=== PATIENT | female | born 1985 | race Caucasian/White ===

== ENCOUNTER 2017-10-09 17:54 | Inpatient (IN) | payer MEDICAID ==
[~2017-10-09] VITALS: Ht 157.5 cm; Wt 75.4 kg
[2017-10-09] MEDS ORDERED: PREN-93 PO (18:07)
[2017-10-09 18:08] VITALS: Ht 157.5 cm; Wt 75.4 kg
[2017-10-09 18:09] VITALS: BP 105/66; PULSE 81; RESP 18
--- NOTE | 2017-10-09 18:22 | TRIAGE ---
OB Triage Datetime Report Generated by CPN: 10/09/2017 18:21 Datetime: 10/09/2017 18:11 Vaginal Exam Dilatation (cms): 9.0 Effacement (%): 100 Station: -1 [facility] Vaginal Bleeding: Normal Show Cervix, Consistency: Soft Cervix, Position: Midposition Presentation 'A': Cephalic Datetime: 10/09/2017 18:04 Assessment Type: Triage Maternal Assessment Level of Consciousness: Fully Conscious DTR's/Clonus: DTRs 2+; No Clonus Headache: Denies Blurred Vision: No Respiratory Effort: Unlabored; Regular Rhythm; Equal Expansion Breath Sounds, Left: Clear and Equal Breath Sounds, Right: Clear and Equal Nausea/Vomiting: Denies RUQ Epigastric Pain: Denies Lower Extremities Edema: None Degree: None Upper Extremities Edema: None Degree: None Facial Edema: None Fall Risk Assessment History of Falling: (0) No Secondary Diagnosis: (0) No Ambulatory Aid: (0) Bedrest/Nurse Assist IV Therapy: (0) No Gait: (0) Normal/Bedrest/Immobile Mental Status: (0) Oriented to Own Ability Fall Score: 0 Fall Risk Score Definition: No Risk: No action required Datetime: 10/09/2017 18:02 Arrived By: Ambulatory Arrived From: Home Chief Complaint: PT HERE C/O UC'S AND SROM Movement: Present Contractions: Denies/Absent Rupture of Membranes: Ruptured Vaginal Bleeding: None Vaginal Discharge: Denies Recent Sexual Intercouse: Denies Abdominal Trauma: Not Applicable Patient Complaints: Contractions; Cramping; Back Pain Time Provider Notified: 10/09/2017 18:10 Provider Notified: LITTLE Initial Plan: EFM/SVE Datetime: 10/09/2017 18:01 Labor Evaluation Monitor Mode: External Heart Rate Monitor Mode: External US
[2017-10-09] MEDS ORDERED: AMPICILLIN 2 GM/NS (PMX) 100 ML ONE (18:25)
[2017-10-09] MEDS ORDERED: AMPICILLIN 2 GM/NS (PMX) 100 ML IV ONE (18:30)
[2017-10-09] MEDS ORDERED: LIDOCAINE 1% (MPF) 30 ML INJ INJ PRN (18:30)
[2017-10-09] MEDS ORDERED: LIDOCAINE 1% (MPF) 30 ML INJ ONE (18:30)
[2017-10-09] MEDS ORDERED: OXYTOCIN 30 UNITS/LR 500 ML IV PRN (18:30)
[2017-10-09] MEDS ORDERED: MISOPROSTOL 200 MCG TAB PR PRN (18:30)
[2017-10-09] MEDS ORDERED: METHYLERGONOVINE 0.2 MG INJ IM PRN (18:30)
[2017-10-09] MEDS ORDERED: LACTATED RINGER'S 1,000 ML IV PRN (18:30)
[2017-10-09] MEDS ORDERED: OXYTOCIN 30 UNITS/LR 500 ML IV SCH ×2 (18:30)
[2017-10-09] MEDS ORDERED: OXYTOCIN 30 UNITS/LR 500 ML IV ONE (18:30)
[2017-10-09] MEDS ORDERED: IBUPROFEN 600 MG TAB PO PRN (18:30)
[2017-10-09] MEDS ORDERED: CARBOPROST 250 MCG INJ IM PRN (18:30)
[2017-10-09] MEDS ORDERED: BUTORPHANOL 2 MG INJ IV PRN (18:30)
[2017-10-09 18:49] LABS: BASOPHILS % 0.3 % (0.0-2.0); EOSINOPHILS # 0.2 10^3/ul (0.0-0.5); EOSINOPHILS % 1.4 % (0.0-7.0); HEMATOCRIT 40.1 % (37.0-47.0); HEMOGLOBIN 13.5 g/dl (12.0-16.0); LYMPHOCYTES # 1.6 10^3/ul (0.8-2.9); LYMPHOCYTES % 11.4 % (15.0-51.0); MEAN CORPUSCULAR HEMOGLOBIN 31.8 pg (29.0-33.0); MEAN CORPUSCULAR HGB CONC 33.7 g/dl (32.0-37.0); MEAN CORPUSCULAR VOLUME 94.6 fl (82.0-101.0); MEAN PLATELET VOLUME 9.6 fl (7.4-10.4); MONOCYTE # 0.8 10^3/ul (0.3-0.9); MONOCYTES % 5.4 % (0.0-11.0); NEUTROPHIL # 11.2 10^3/ul (1.6-7.5); NEUTROPHILS % 80.6 % (39.0-77.0); PLATELET COUNT 273 10^3/UL (140-415); RED BLOOD COUNT 4.24 10^6/ul (4.20-5.40); RED CELL DISTRIBUTION WIDTH 13.2 % (11.5-14.5); WHITE BLOOD COUNT 13.9 10^3/ul (4.8-10.8)
[2017-10-09] MEDS: LACTATED RINGER'S 1,000 ML IV SCH ×2 (18:51→19:08)
[2017-10-09 19:10] LABS: INR 0.95; PROTIME 12.7 Sec (12.2-14.2)
[2017-10-09 19:11] LABS: PARTIAL THROMBOPLASTIN TIME 27.4 Sec (25.0-35.0)
--- NOTE | 2017-10-09 21:01 | HP ---
Date/Time of Note Date/Time of Note DATE: 10/09/17 TIME: 20:59 OB - History Hx of Present Chief Complaint: contractions Estimated Due Date: Oct 18, 2017 : 2 Para: 1 Spontaneous : 0 Therapeutic : 0 Care: Good Care Ultrasounds: Other (reports notavailable) Obstetrical Complications: None Medical Complications: None Past Family/Social History * Past Medical, Surgical, Family and Obstetric Histories reviewed from chart. GBS Status: Negative OB Admission Exam Vital Signs Vital Signs Vital Signs Date Time Temp Pulse Resp B/P Pulse Ox O2 Delivery O2 Flow Rate FiO2 10/09/17 18:09 99.4 81 18 105/66 96 Room Air Physical Exam HEENT: WNL Heart: Rhythm Normal Lungs: Clear, Equal Abdomen: WNL Extremities: Normal Reflexes: Normal Cervical Dilatation: 8cm Effacement: 100% Station: -1 Membranes: Ruptured Amniotic Fluid: Clear Heart Rate: 120's Accelerations: Accelerations Present Decelerations: Early Decelerations Varibility: Moderate Last 72 hours Lab Results CBC & BMP 10/09/17 18:20 OB Assessment/Plan Reason for admission: active labor Plan: Expectant Management KIMBERLY BELLAMY MD Oct 09, 2017 21:01
--- NOTE | 2017-10-09 21:53 | LDN ---
Date/Time of Note Date/Time of Note DATE: 10/09/17 TIME: 21:50 Delivery Summary Weeks of Gestation 38 weeks Placenta Delivered: Spontaneously Meconium: none Episiotomy: No Perineal laceration: 1 Laceration repair: Second degree laceration repaired with 3-0 chromic. Anesthesia type: Local Estimated blood loss: 200 Sponge & Needle done & correct: Yes All needle counts correct: Yes Any foreign bodies felt in the: No Problems: Infant Delivery Information Sex Sex: male Apgars 1 Minute: 9 5 Minute: 9 Suctioning Nose & mouth suctioned at freddie: Yes Delee suction performed: No Umbilical Cord Umbilical cord with: 3 Vessels Cord presentations: no nuchal cord Cord Blood was obtained: Yes Mother & Baby Disposition Disposition Mom & Baby to Maternity; Good: Yes KIMBERLY BELLAMY MD Oct 09, 2017 21:53
[2017-10-09] MEDS ORDERED: AMPICILLIN 1 GM/NS (PMX) 50 ML IV SCH (22:30)
[2017-10-10] VITALS: BP 112/58; PULSE 69; RESP 18
[2017-10-10] MEDS ORDERED: DIBUCAINE 1% 30 GM OINT PR PRN (00:30)
[2017-10-10] MEDS ORDERED: LANOLIN 7 GM TUBE TOP PRN (00:30)
[2017-10-10] MEDS ORDERED: CARBOPROST 250 MCG INJ IM PRN (00:30)
[2017-10-10] MEDS ORDERED: METHYLERGONOVINE 0.2 MG INJ IM PRN (00:30)
[2017-10-10] MEDS ORDERED: HYDROCODONE/APAP (5/325) TAB PO PRN (00:30)
[2017-10-10] MEDS ORDERED: WITCH HAZEL/GLYCERIN PAD PR PRN (00:30)
[2017-10-10] MEDS ORDERED: ACETAMINOPHEN 325 MG TAB PO PRN (00:30)
[2017-10-10] MEDS ORDERED: BENZOCAINE 20% 56 ML SPRAY TOP PRN (00:30)
[2017-10-10] MEDS ORDERED: MISOPROSTOL 200 MCG TAB PR PRN (00:30)
[2017-10-10] MEDS ORDERED: OXYTOCIN 30 UNITS/LR 500 ML IV PRN (00:30)
[2017-10-10] MEDS: IBUPROFEN 600 MG TAB PO SCH ×4 (00:48→17:55)
[2017-10-10] MEDS: LACTATED RINGER'S 1,000 ML IV* SCH ×3 (02:30→16:21)
[2017-10-10 04:00] VITALS: BP 95/51; PULSE 81; RESP 18
--- NOTE | 2017-10-10 09:36 | QN ---
Documentation Comment Post normal vaginal delivery day 1 Afebrile Vital signs are stable Abdomen soft uterus firm lochia normal extremity normal ambulation encouraged ELPIDIO FITCH MD Oct 10, 2017 09:36
[2017-10-10 09:40] LABS: BASOPHIL # 0.1 10^3/ul (0.0-0.1); BASOPHILS % 0.3 % (0.0-2.0); EOSINOPHILS # 0.2 10^3/ul (0.0-0.5); HEMOGLOBIN 11.4 g/dl (12.0-16.0); LYMPHOCYTES % 17.7 % (15.0-51.0); MEAN CORPUSCULAR HEMOGLOBIN 32.1 pg (29.0-33.0); MEAN CORPUSCULAR HGB CONC 33.5 g/dl (32.0-37.0); MEAN CORPUSCULAR VOLUME 95.8 fl (82.0-101.0); NEUTROPHIL # 12.6 10^3/ul (1.6-7.5); NEUTROPHILS % 74.2 % (39.0-77.0); PLATELET COUNT 260 10^3/UL (140-415); RED BLOOD COUNT 3.55 10^6/ul (4.20-5.40); RED CELL DISTRIBUTION WIDTH 13.6 % (11.5-14.5)
[2017-10-10] MEDS: SENNA/DOCUSATE NA (8.6MG/50MG) TAB PO SCH ×2 (09:41→22:51)
[2017-10-10 09:42] VITALS: BP 99/54; PULSE 84; RESP 18
[2017-10-10 11:44] VITALS: BP 100/53; PULSE 65; RESP 18
[2017-10-10 16:15] VITALS: BP 101/56; PULSE 70; RESP 18
[2017-10-10 20:00] VITALS: BP 114/58; PULSE 71; RESP 18
[2017-10-11] MEDS: IBUPROFEN 600 MG TAB PO SCH ×3 (00:18→13:08)
[2017-10-11 04:55] VITALS: BP 103/59; PULSE 64; RESP 18
[2017-10-11 08:00] VITALS: BP 108/65; PULSE 76; RESP 20
[2017-10-11] MEDS ORDERED: DIPHTH/TET/ACEL PERTUSS (ADULT) 0.5 ML VIAL IM* ONE (09:00)
[2017-10-11] MEDS: SENNA/DOCUSATE NA (8.6MG/50MG) TAB PO SCH (09:34)
[2017-10-11 09:42] LABS: BASOPHIL # 0.1 10^3/ul (0.0-0.1); BASOPHILS % 0.5 % (0.0-2.0); EOSINOPHILS # 0.9 10^3/ul (0.0-0.5); EOSINOPHILS % 6.9 % (0.0-7.0); HEMATOCRIT 33.2 % (37.0-47.0); HEMOGLOBIN 11.1 g/dl (12.0-16.0); LYMPHOCYTES # 2.7 10^3/ul (0.8-2.9); LYMPHOCYTES % 20.4 % (15.0-51.0); MEAN CORPUSCULAR HEMOGLOBIN 32.4 pg (29.0-33.0); MEAN CORPUSCULAR HGB CONC 33.4 g/dl (32.0-37.0); MEAN CORPUSCULAR VOLUME 96.8 fl (82.0-101.0); MEAN PLATELET VOLUME 9.8 fl (7.4-10.4); MONOCYTE # 0.6 10^3/ul (0.3-0.9); MONOCYTES % 4.7 % (0.0-11.0); NEUTROPHIL # 8.7 10^3/ul (1.6-7.5); NEUTROPHILS % 66.8 % (39.0-77.0); PLATELET COUNT 237 10^3/UL (140-415); RED BLOOD COUNT 3.43 10^6/ul (4.20-5.40); RED CELL DISTRIBUTION WIDTH 13.6 % (11.5-14.5)
--- NOTE | 2017-10-11 10:10 | PD.PPDC ---
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
--- NOTE | 2017-10-11 10:13 | DS ---
Date/Time of Note Date/Time of Note DATE: 10/11/17 TIME: 10:12 Discharge Summary Admission/Discharge Info Admit Date/Time Oct 09, 2017 at 18:22 Discharge Date/Time October 11, 2017 at 10 AM Discharge Diagnosis Post normal vaginal delivery day 2 Patient Condition: Good Procedures Normal vaginal delivery Hx of Present Illness Term Hospital Course Satisfactory recovery Home Meds Reported Medications Vit No.124/Iron/FA ( Vitamin Tablet) 1 Each Tablet, 1 EACH PO DAILY, TAB 10/09/17 Follow-up Plan instruction given recommended to make appointment to be seen at the clinic in 2 weeks Primary Care Provider Care Physician No Primary Time spent on discharge: < 30 minutes Pending Labs Laboratory Tests Test 10/11/17 09:19 White Blood Count 13.010^3/ul (4.8-10.8) Red Blood Count 3.4310^6/ul (4.20-5.40) Hemoglobin 11.1g/dl (12.0-16.0) Hematocrit 33.2% (37.0-47.0) Mean Corpuscular Volume 96.8fl (82.0-101.0) Mean Corpuscular Hemoglobin 32.4pg (29.0-33.0) Mean Corpuscular Hemoglobin Concent 33.4g/dl (32.0-37.0) Red Cell Distribution Width 13.6% (11.5-14.5) Platelet Count 44320^3/UL (140-415) Mean Platelet Volume 9.8fl (7.4-10.4) Neutrophils % 66.8% (39.0-77.0) Lymphocytes % 20.4% (15.0-51.0) Monocytes % 4.7% (0.0-11.0) Eosinophils % 6.9% (0.0-7.0) Basophils % 0.5% (0.0-2.0) Nucleated Red Blood Cells % 0.0/100WBC (0.0-0.0) Neutrophils # 8.710^3/ul (1.6-7.5) Lymphocytes # 2.710^3/ul (0.8-2.9) Monocytes # 0.610^3/ul (0.3-0.9) Eosinophils # 0.910^3/ul (0.0-0.5) Basophils # 0.110^3/ul (0.0-0.1) Nucleated Red Blood Cells # 0.010^3/ul (0.0-0.0) ELPIDIO FITCH MD Oct 11, 2017 10:13
== END 2017-10-11 13:26 | disposition home or self-care (01) | DRG 775 ==
LOC: OBT 17:54 → L-D 17:56 → OBT 18:22 → PP1 23:37
PROVIDERS: ADMIT Obstetrics & Gynecology; ATTEND Obstetrics & Gynecology
PROC: 10E0XZZ Delivery of Products of Conception, External Approach (ICD-10-PCS; principal; 2017-10-09)
PROC: 0HQ9XZZ Repair Perineum Skin, External Approach (ICD-10-PCS; 2017-10-09)
PROC: 3E033VJ Introduction of Other Hormone into Peripheral Vein, Percutaneous Approach (ICD-10-PCS; 2017-10-09)
DX: O70.1 Second degree perineal laceration during delivery (principal); Z37.0 Single live birth; Z3A.38 38 weeks gestation of pregnancy
CPT/HCPCS: 85025; 85610; 85730; 86592; 86900; 86901; 90715; 99464; G0463; J0290; J2590; J7120